=== PATIENT | male | born 1945 | race Caucasian/White ===

== ENCOUNTER 2017-01-19 06:33 | Day surgery (SDC) | payer MEDICARE ==
[~2017-01-19 06:33] MED LIST: Buffered Lidocaine 0.9% SYRIN* 5 ML/SYR SYRINGE INTRADERM ONE; Buffered Lidocaine 0.9% SYRIN* 5 ML/SYR SYRINGE ONE; Proparacaine 0.5% OPHTH.SOL* 15 ML BTL ONE; mitoMYcin PWD* 0.2 MG in Sterile Water for Inj* 1 ML OPHTHALMIC SCH
[2017-01-19] MEDS ORDERED: Triamcinolone Acetonide* 40 MG/ML 1 ML VIAL ONE (07:17)
[2017-01-19] MEDS ORDERED: Acetylcholine 1:100 OPTH* OPHTH.SOLN ONE (07:17)
[2017-01-19] MEDS ORDERED: Lidocaine 2% PF* 10 ML AMP ONE (07:17)
[2017-01-19] MEDS ORDERED: Neomycin/Polymy/Dex OPTH.SUSP* MAXITROL 0.1% 5 ML ONE (07:18)
[2017-01-19] MEDS ORDERED: Lidocaine 2% EPI 1:200000 MPF* 20 ML VIAL ONE (07:18)
[2017-01-19] MEDS ORDERED: BSS OPTH.SOL* BTL ONE (07:18)
[2017-01-19] MEDS ORDERED: Atropine 1% OPHTH.SOL* 2 ML BOT - 2 ML ONE (07:18)
[2017-01-19] MEDS ORDERED: Hyaluronidase OVINE* 200 UNIT/ML ML SUBCUT ONE (07:19)
[2017-01-19] MEDS ORDERED: Povidone Iodine 5% OPTH* 30 ML BTL ONE (07:19)
[2017-01-19] MEDS ORDERED: Sodium Bicarbonate 8.4%* 50 ML SYRINGE ONE (07:23)
[2017-01-19] MEDS ORDERED: Midazolam* 1 MG/ML 2 ML VIAL (2 MG) ONE (07:26)
[2017-01-19] MEDS ORDERED: fentaNYL* 50 MCG/ML 2 ML VIAL (100 MCG VIAL) ONE (07:34)
[2017-01-19] MEDS ORDERED: Propofol* 10 MG/ML 20 ML BTL IV PUSH ONE (07:46)
[2017-01-19] MEDS ORDERED: fentaNYL* 50 MCG/ML 2 ML VIAL (100 MCG VIAL) IV PRN (08:22)
[2017-01-19] MEDS ORDERED: Ondansetron INJ* 2 MG/ML VIAL IV PRN (08:22)
[2017-01-19 08:57] VITALS: BP 137/61
--- NOTE | 2017-01-20 04:25 | OP ---
DICTATION ENDS ABRUPTLY DATE OF OPERATION: 01/19/17 [facility] DATE OF : 43 SURGEON: Charlie Ferrell MD ANESTHESIA: Local with MAC. PREOPERATIVE DIAGNOSIS: Uncontrolled glaucoma, left eye. POSTOPERATIVE DIAGNOSIS: Uncontrolled glaucoma, left eye. OPERATIVE PROCEDURE: Trabeculectomy, left eye. COMPLICATIONS: None. DESCRIPTION OF PROCEDURE: The patient was given retrobulbar anesthesia in the operating room, 50:50 mixture of 2% lidocaine with epinephrine and 0.75 Marcaine , 4 cc were given in the muscle cone without difficulty. The patient was prepped and draped in usual sterile fashion. A 6-0 silk traction suture was placed through the superior limbus and the eye rotated inferiorly. A fornix- based conjunctival peritomy was performed from the 12 o'clock to 2 o'clock position with Joe scissors. Dissection carried down to bare sclera. Hemostasis achieved with pinpoint cautery. Mitomycin-C 0.2 mg/mL was left in sub-Tenon's for 90 seconds and then thoroughly irrigated with balanced salt solution. A triangular limbal based half scleral thickness flap was created with the 75 blade and a crescent blade. Anterior chamber entered with a 3-mm keratome. The Mely punch was used to remove a 1x3 mm trabecular block. Miochol instilled into the anterior chamber. Small amount of DisCoVisc in the anterior chamber. A peripheral iridectomy performed with Vannas scissors at the 130 position. The flap secured with two 10-0 nylon sutures and adjusting the tension so that there is adequate fluid flow. Then the conjunctiva was closed using a running locking 10-0 nylon closure. Paracentesis made at the ___ ___. DICTATION ENDS ABRUPTLY [id number]/[facility] #: [id number] [facility]
== END 2017-01-19 09:00 | disposition home or self-care (01) ==
LOC: OREAST 06:33
PROVIDERS: ATTEND Specialist
DX: H40.1131 Primary open-angle glaucoma, bilateral, mild stage (principal); I10 Essential (primary) hypertension; K21.9 Gastro-esophageal reflux disease without esophagitis; H26.491 Other secondary cataract, right eye; Z96.1 Presence of intraocular lens; Z79.82 Long term (current) use of aspirin; Z88.8 Allergy status to other drugs, medicaments and biological substances
CPT/HCPCS: A9270-GY; J2001; J2250; J2704; J3010; J3301; J9280

== ENCOUNTER 2017-02-09 06:17 | Day surgery (SDC) | payer MEDICARE ==
[~2017-02-09 06:17] MED LIST changes: +Acetaminophen TAB* 325 MG PO PRN; +mitoMYcin 0.2 MG (0.02%) in Sterile Water for Inj* 1 ML SCH; -mitoMYcin PWD* 0.2 MG in Sterile Water for Inj* 1 ML OPHTHALMIC SCH
[2017-02-09] MEDS ORDERED: Lidocaine 2% PF* 10 ML AMP ONE (07:06)
[2017-02-09] MEDS ORDERED: Acetylcholine 1:100 OPTH* OPHTH.SOLN ONE (07:06)
[2017-02-09] MEDS ORDERED: Triamcinolone Acetonide* 40 MG/ML 1 ML VIAL ONE (07:06)
[2017-02-09] MEDS ORDERED: BSS OPTH.SOL* BTL ONE ×2 (07:06→07:22)
[2017-02-09] MEDS ORDERED: Povidone Iodine 5% OPTH* 30 ML BTL ONE (07:07)
[2017-02-09] MEDS ORDERED: Hyaluronidase OVINE* 200 UNIT/ML ML SUBCUT ONE (07:07)
[2017-02-09] MEDS ORDERED: Neomycin/Polymy/Dex OPTH.SUSP* MAXITROL 0.1% 5 ML ONE (07:07)
[2017-02-09] MEDS ORDERED: Sodium Bicarbonate 8.4%* 50 ML SYRINGE ONE (07:08)
[2017-02-09] MEDS ORDERED: Atropine 1% OPHTH.SOL* 2 ML BOT - 2 ML ONE (07:09)
[2017-02-09] MEDS ORDERED: Midazolam* 1 MG/ML 2 ML VIAL (2 MG) ONE (07:21)
[2017-02-09] MEDS ORDERED: fentaNYL* 50 MCG/ML 2 ML VIAL (100 MCG VIAL) ONE (07:21)
[2017-02-09] MEDS ORDERED: Lidocaine 2% PF * 5 ML VIAL ONE (07:33)
[2017-02-09] MEDS ORDERED: Propofol* 10 MG/ML 20 ML BTL IV PUSH ONE (07:33)
[2017-02-09 08:45] VITALS: BP 138/67
--- NOTE | 2017-02-09 16:21 | OP ---
DATE OF OPERATION: 02/09/17 [facility] DATE OF : 43 SURGEON: Charlie Ferrell M.D. ANESTHESIA: Local with MAC. COMPLICATIONS: None. PREOPERATIVE DIAGNOSIS: Uncontrolled glaucoma, right eye. POSTOPERATIVE DIAGNOSIS: Uncontrolled glaucoma, right eye. OPERATIVE PROCEDURE: Trabeculectomy right eye. DESCRIPTION OF PROCEDURE: The patient was given retrobulbar anesthesia in the operating room, 50:50 mixture of 0.75 Marcaine and 2% lidocaine with epinephrine , 4 cc injected in the muscle cone without difficulty. Eye was prepped and draped in the usual sterile fashion. A lid speculum was placed, 6-0 silk traction suture placed through the superior limbus and the eye rotated inferiorly. A fornix-based conjunctival peritomy was performed running from the 10 o'clock to 12 o'clock position using the Joe scissors; 2% lidocaine with epinephrine was injected sub- Tenon's. Dissection was carried down to bare sclera. Hemostasis achieved with cautery. Mitomycin-C 0.2 mg/mL placed sub-Tenon's for 1-1/2 minutes and thoroughly irrigated with balanced salt solution. A limbal based triangular half scleral thickness flap was created using the crescent blade in the area of the peritomy at 10:30. Anterior chamber entered with a 3 mm keratome. A Miochol instilled into the anterior chamber. Paracentesis made at the 8 o'clock position with 75 blade. Some DisCoVisc instilled in the anterior chamber. Mely punch was used to removed a 3 x 1 mm trabecular block of tissue from under the flap. Peripheral iridectomy performed with Vannas scissors through the flap. The flap closed at its apex with one 10-0 nylon suture. Conjunctiva closed using a running locking 10-0 nylon suture and running locking 10-0 Vicryl suture. Anterior chamber reinflated and the incisions were found to be watertight with good bleb development, sub-Tenon's Kenalog 40 mg/mL, 1 mL was injected sub-Tenon's at the inferior fornix. Lid speculum was removed, traction sutures removed. Topical atropine and Maxitrol were given, and the eye was patched. [id number]/[facility] #: [id number] [facility]
== END 2017-02-09 08:38 | disposition home or self-care (01) ==
LOC: OREAST 06:17
PROVIDERS: ATTEND Specialist
DX: H40.1111 Primary open-angle glaucoma, right eye, mild stage (principal); H40.1121 Primary open-angle glaucoma, left eye, mild stage; I25.10 Atherosclerotic heart disease of native coronary artery without angina pectoris; I25.2 Old myocardial infarction; I10 Essential (primary) hypertension; Z87.891 Personal history of nicotine dependence; E03.9 Hypothyroidism, unspecified
CPT/HCPCS: A9270-GY; J2001; J2250; J2704; J3010; J3301; J3471; J9280

== ENCOUNTER 2017-10-30 08:01 | Emergency (ER) | payer MEDICARE ==
[2017-10-30] MEDS ORDERED: cloNIDine TAB* 0.1 MG PO ONE (08:47)
[2017-10-30 08:55] LABS: ABS Basophils 0 10^3/ul (0-0.2); ABS Eosinophils 0.1 10^3/ul (0-0.6); ABS Monocytes 0.5 10^3/ul (0-0.8); ABS Neutrophils 4.1 10^3/ul (1.5-7.7); ABS Nucleated RBC 0 10^3/ul; Eosinophil % 1.5 % (0-6); Hematocrit 39 % (42-52); Hemoglobin 13.4 g/dl (14.0-18.0); Mean Corpuscular HGB Conc 35 g/dl (31-36); Mean Corpuscular Hemoglobin 30 pg (27-31); Mean Corpuscular Volume 87 fL (80-94); Mean Platelet Volume 7.3 um3 (7.4-10.4); Nucleated Red Blood Cells % 0; Platelet Count 268 10^3/ul (150-450); Red Blood Count 4.49 10^6/ul (4.0-5.4); Red Cell Distribution Width 14 % (10.5-15); White Blood Count 5.7 10^3/ul (3.5-10.8)
[2017-10-30 09:04] LABS: INR 0.93 (0.77-1.02)
[2017-10-30 09:15] LABS: EGFR Non-African American 74.1 (>60)
--- NOTE | 2017-10-30 09:37 | RAD ---
Indication: Epistaxis. Elevated blood pressure. History of myocardial infarction. History of respiratory disease. Comparison: April 24, 2011 and November 18, 2013 CT abdomen. Technique: Dual energy PA and lateral chest views. Report: Elevated lung volumes and both mild prominence and patchy rarefaction of interstitial markings. 0.8 cm nodule at the RIGHT mid to lower lung zone is unchanged compared with the 2011 exam without concern. Bilateral calcified pleural plaques including involvement of the diaphragmatic surfaces. Negative for pleural effusion or pneumothorax. The heart, pulmonary vasculature, and mediastinal contours are unremarkable. Gallbladder fossa level surgical clips. IMPRESSION: 1. Stigmata of obstructive lung disease and prior asbestos exposure with calcified pleural plaques including involvement of the diaphragmatic surfaces. 2. No acute pulmonary or cardiac process evident.
[2017-10-30 14:05] VITALS: BP 154/85
--- NOTE | 2017-10-31 11:23 | ED ---
Mag Guerra Edward, scribed for Mae Elkins MD on 10/30/17 at 0829 . Complex/Multi-Sys Presentation - HPI Summary HPI Summary: 72 y/o male presents to the ED c/o intermittent episodes of epistaxis for the last 4 weeks. Episodes aggravated with sneezing, blowing his nose. Epistaxis alleviated with "cold plate treatment". This morning the pt had 1 episode of epistaxis after blowing his nose. Pt then took his BP and reports it was "super high". 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 Associated sx: SOB for the past few days, small ecchymosis on R calf. PMHx HTN, "mini-stroke" in L eye. Meds - plavix and ASA, last taken 07:00 this morning. - History Of Current Complaint Chief Complaint: EDGeneral Time Seen by Provider: 10/30/17 08:26 Hx Obtained From: Patient Onset/Duration: Lasting Weeks Timing: Intermittent, Lasting: Aggravating Factor(s): sneezing, blowing his nose Alleviating Factor(s): "cold plate treatment" Associated Signs And Symptoms: Positive: SOB, Other - epistaxis, small ecchymosis on R calf - Allergies/Home Medications Allergies/Adverse Reactions: Allergies Allergy/AdvReac Type Severity Reaction Status Date / Time colestipol Allergy Severe Joint Pain Verified 10/30/17 08:09 fluvastatin Allergy Severe Joint Pain Verified 10/30/17 08:09 simvastatin Allergy Severe Joint Pain Verified 10/30/17 08:09 Ufwltng-Qzy-Fhg Reductase Allergy Severe Joint Pain Verified 10/30/17 08:09 Inhibitor Home Medications: Home Medications Clopidogrel TAB* [Plavix TAB*] 75 mg PO DAILY 10/30/17 [History Confirmed ] Docusate Sodium [Stool Softener] 1 cap PO DAILY 10/30/17 [History Confirmed ] Pantoprazole TAB (NF) [Protonix TAB (NF)] 40 mg PO DAILY 10/30/17 [History Confirmed 10/30/17] PMH/Surg Hx/FS Hx/Imm Hx Previously Healthy: No Endocrine/Hematology History: Reports: Hx Anticoagulant Therapy, Hx Blood Transfusions, Hx Thyroid Disease - hypothyroid Denies: Hx Blood Disorders, Hx Bone Marrow Disease, Hx Diabetes, Hx Systemic Lupus Erythematosus, Hx Sickle Cell Disease, Hx Anemia, Hx Unexplained Bleeding Cardiovascular History: Reports: Hx Angina, Hx Angioplasty, Hx Cardiomegaly, Hx Coronary Artery Disease, Hx Hypercholesterolemia, Hx Hypertension, Hx Rheumatic Fever Denies: Hx Aneurysm, Hx Auto Implanted Cardiovert Defib, Hx Cardiac Arrest, Hx Congenital Heart Disease, Hx Congestive Heart Failure, Hx Deep Vein Thrombosis, Hx Embolism, Hx Hypotension, Hx Pacemaker/ICD, Hx Peripheral Vascular Disease, Hx Syncope, Hx Valvular Heart Disease, Other Cardiovascular Problems/Disorders Respiratory History: Denies: Other Respiratory Problems/Disorders GI History: Reports: Hx Gall Bladder Disease, Hx Gastroesophageal Reflux Disease , Hx Gastrointestinal Bleed, Hx Jaundice, Other GI Disorders - GERD/BARRETTS ESOPHAGUS Denies: Hx Cirrhosis, Hx Crohn's Disease, Hx Diverticulosis, Hx Hiatal Hernia , Hx Irritable Bowel, Hx Obstructive Bowel, Hx Ileostomy, Hx Pyloric Stenosis, Hx Ulcer History: Reports: Hx Benign Prostatic Hyperplasia Denies: Hx Renal Disease Musculoskeletal History: Reports: Hx Arthritis, Hx Back Problems Denies: Other Musculoskeletal History Sensory History: Reports: Hx Cataracts, Hx Contacts or Glasses, Hx Glaucoma, Hx Vision Problem, Hx Hearing Problem Denies: Hx Eye Injury, Hx Eye Prosthesis, Hx Legally Blind, Hx Macular Degeneration, Hx Deafness, Hx Hearing Aid Opthamlomology History: Reports: Hx Cataracts, Hx Contacts or Glasses, Hx Glaucoma, Hx Vision Problem Denies: Hx Eye Injury, Hx Eye Prosthesis, Hx Legally Blind, Hx Macular Degeneration Neurological History: Denies: Other Neuro Impairments/Disorders Psychiatric History: Denies: Hx Panic Disorder - Cancer History Cancer Type, Location 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 Hx Chemotherapy: No Hx Radiation Therapy: No Hx Palliative Cancer Treatment: No - Surgical History Surgery Procedure, Year, and Place: HEMMOROIDS,GALL BLADDER,STENTS X 2,EYE SHUNT FOR GLAUCOMA *HAD MRI WITH US AT 1.5-OK'D BY DR KEN* Hx Anesthesia Reactions: No Infectious Disease History: No Infectious Disease History: Denies: Hx Clostridium Difficile, Hx Hepatitis, Hx Human Immunodeficiency Virus (HIV), Hx of Known/Suspected MRSA, Hx Shingles, Hx Tuberculosis, Hx Known/ Suspected VRE, Hx Known/Suspected VRSA, History Other Infectious Disease, Traveled Outside the [place] in Last 30 Days - Social History Alcohol Use: None Substance Use Type: Reports: None Smoking Status (MU): Former Smoker Type: Cigarettes Amount Used/How Often: 1 PPD Length of Time of Smoking/Using Tobacco: 30 years Have You Smoked in the Last Year: No Review of Systems Constitutional: Negative Eyes: Negative Positive: Epistaxis Cardiovascular: Negative Positive: Shortness Of Breath Gastrointestinal: Negative Genitourinary: Negative Musculoskeletal: Negative Positive: Bruising - small on R calf Neurological: Negative Psychological: Normal All Other Systems Reviewed And Are Negative: Yes Physical Exam - Summary Physical Exam Summary: GENERAL: ~Patient is a well developed and nourished M who is lying comfortable in the stretcher. ~Patient is not in any acute respiratory distress. HEAD AND FACE: Normocephalic EYES: PERRLA, EOMI x 2. EARS: Hearing grossly intact. NOSE: No active bleeding. MOUTH: Oropharynx within normal limits. NECK: Supple, trachea is midline, no adenopathy, no JVD, no carotid bruit. CHEST: Symmetric, no tenderness at palpation LUNGS: Clear to auscultation bilaterally. No wheezing or crackles. CVS: Regular rate and rhythm, S1 and S2 present, no murmurs or gallops appreciated. ABDOMEN: Soft, non-tender. Bowel sounds are normal. No abdominal abnormal pulsations. EXTREMITIES: Full ROM in all major joints, no edema, no cyanosis or clubbing. Small ecchymosis @ lateral aspect of R leg. NEURO: Alert and oriented x 3. No acute neurological deficits. Speech is normal and follows commands. SKIN: Dry and warm Triage Information Reviewed: Yes Vital Signs On Initial Exam: Initial Vitals Temp Pulse Resp BP Pulse Ox 98.1 F 73 16 204/86 98 10/30/17 08:03 10/30/17 08:03 10/30/17 08:03 10/30/17 08:03 10/30/17 08:03 Vital Signs Reviewed: Yes Diagnostics - Vital Signs Vital Signs Temp Pulse Resp BP Pulse Ox 10/30/17 08:03 98.1 F 73 16 204/86 98 - Laboratory Result Diagrams: 10/30/17 08:48 10/30/17 08:48 Lab Statement: Any lab studies that have been ordered have been reviewed, and results considered in the medical decision making process. - Radiology CXR Xray Interpretation: Positive (See Comments) - 1. Stigmata of obstructive lung disease and prior asbestos exposure with calcified pleural plaques including involvement of the diaphragmatic surfaces. 2. No acute pulmonary or cardiac process evident. Radiology Interpretation Completed By: Radiologist - ED PHYSICIAN [employer]REES Re-Evaluation - Re-Evaluation 1 Re-Evaluation Time: 10:36 Change: Improved Complex Multi-Symp Course/Dx Assessment/Plan: 72 y/o male who is on blood thinners presents to ED c/o nose bleeds, then took bp and realized it was elevated. No active nose bleeding in ED but BP was elevated. Given klonodine with improvement of BP. H&H stable and coagulation studies normal. Pt will be d/c home strict return precautions otherwise f/u with PCP. - Diagnoses Provider Diagnoses: Hypertension Discharge - Sign-Out/Discharge Documenting (check all that apply): Discharge/Admit/Transfer - Discharge Plan Condition: Stable Disposition: HOME Patient Education Materials: Nosebleed (ED), Hypertension (ED) Referrals: Thuan Garcia MD [Primary Care Provider] - 4 Days (PLEASE F/U IN 3-5 DAYS) Additional Instructions: RETURN FOR CHANGING AND WORSENING SYMPTOMS The documentation as recorded by the Mag norman Edward accurately reflects the service I personally performed and the decisions made by , Mae Elkins MD.
== END 2017-10-30 14:31 | disposition home or self-care (01) ==
LOC: ED 08:01
DX: I10 Essential (primary) hypertension (principal); J44.9 Chronic obstructive pulmonary disease, unspecified; F17.210 Nicotine dependence, cigarettes, uncomplicated; Z86.73 Personal history of transient ischemic attack (TIA), and cerebral infarction without residual deficits; Z79.82 Long term (current) use of aspirin; Z79.02 Long term (current) use of antithrombotics/antiplatelets; Z88.8 Allergy status to other drugs, medicaments and biological substances
CPT/HCPCS: 36415; 71046; 80053; 84484; 85025; 85610; 85730; 99283; A9270-GY

== ENCOUNTER 2017-12-03 08:08 | Emergency (ER) | payer MEDICARE ==
[2017-12-03] MEDS ORDERED: amLODIPine TAB* 5 MG PO ONE (09:03)
[2017-12-03 09:33] LABS: Hematocrit 40 % (42-52); Hemoglobin 13.6 g/dl (14.0-18.0); Mean Corpuscular HGB Conc 34 g/dl (31-36); Mean Corpuscular Hemoglobin 30 pg (27-31); Mean Corpuscular Volume 87 fL (80-94); Mean Platelet Volume 7.4 um3 (7.4-10.4); Platelet Count 298 10^3/ul (150-450); Red Blood Count 4.59 10^6/ul (4.0-5.4); Red Cell Distribution Width 14 % (10.5-15)
--- NOTE | 2017-12-03 09:47 | ED ---
Throat Pain/Nasal Congestion - HPI Summary HPI Summary: Patient here with recurrent epistaxis over the past couple of months. He reports his bloody noses lasts for about 10 minutes or less in the improve when he applies a moisturizing nasal gel. He does not apply pressure. Sometimes the strip from the front of his nose other times they going to the back of his throat. He has had clotting with his nosebleeds as well. He was seen here at the end of October for similar issue and referred back to his PCP. His blood pressure was elevated that day and appears to be elevated again today - patient reports his blood pressure is typically controlled in the 120s but has not been since his nosebleeds have been recurrent. He takes Norvasc, lisinopril and atenolol. He also admits he had allergic rhinitis symptoms earlier in the year with sneezing, congestion, rhinorrhea. He does not take any medication for this including antihistamine eye mouth or by nasal spray. He has used antihistamine nasal spray in the past which seemed to be helpful however once the bottle ran out he stopped using it and never got a refill. He denies headache, dizziness, eye pain, sore throat, ear pain, chest pain, lightheadedness, weakness. He takes Plavix for carotid artery stenosis. - History of Current Complaint Chief Complaint: EDEpistaxis Time Seen by Provider: 12/03/17 08:17 Hx Obtained From: Patient - Allergies/Home Medications Allergies/Adverse Reactions: Allergies Allergy/AdvReac Type Severity Reaction Status Date / Time colestipol Allergy Severe Joint Pain Verified 12/03/17 08:14 fluvastatin Allergy Severe Joint Pain Verified 12/03/17 08:14 simvastatin Allergy Severe Joint Pain Verified 12/03/17 08:14 Ckeoxap-Ida-Lze Reductase Allergy Severe Joint Pain Verified 12/03/17 08:14 Inhibitor Home Medications: Home Medications Glucosamine CAP (NF) 1 cap PO BID 12/03/17 [History Confirmed 12/03/17] Nitroglycerin TAB 0.4 MG* 0.4 mg SL Q5M PRN 12/03/17 [History Confirmed 12/03/17 ] Triamcinolone 0.1% CREAM (NF) [Kenalog 0.1% Cream (NF)] 1 applic TOPICAL DAILY PRN 12/03/17 [History Confirmed 12/03/17] PMH/Surg Hx/FS Hx/Imm Hx Previously Healthy: Yes Endocrine/Hematology History: Reports: Hx Anticoagulant Therapy - plavix, Hx Blood Transfusions, Hx Thyroid Disease - hypothyroid Denies: Hx Blood Disorders, Hx Bone Marrow Disease, Hx Diabetes, Hx Systemic Lupus Erythematosus, Hx Sickle Cell Disease, Hx Anemia, Hx Unexplained Bleeding Cardiovascular History: Reports: Hx Angina, Hx Angioplasty, Hx Cardiomegaly, Hx Coronary Artery Disease, Hx Hypercholesterolemia, Hx Hypertension, Hx Rheumatic Fever Denies: Hx Aneurysm, Hx Auto Implanted Cardiovert Defib, Hx Cardiac Arrest, Hx Congenital Heart Disease, Hx Congestive Heart Failure, Hx Deep Vein Thrombosis, Hx Embolism, Hx Hypotension, Hx Pacemaker/ICD, Hx Peripheral Vascular Disease, Hx Syncope, Hx Valvular Heart Disease, Other Cardiovascular Problems/Disorders Respiratory History: Denies: Other Respiratory Problems/Disorders GI History: Reports: Hx Gall Bladder Disease, Hx Gastroesophageal Reflux Disease , Hx Gastrointestinal Bleed, Hx Jaundice, Other GI Disorders - GERD/BARRETTS ESOPHAGUS Denies: Hx Cirrhosis, Hx Crohn's Disease, Hx Diverticulosis, Hx Hiatal Hernia , Hx Irritable Bowel, Hx Obstructive Bowel, Hx Ileostomy, Hx Pyloric Stenosis, Hx Ulcer History: Reports: Hx Benign Prostatic Hyperplasia Denies: Hx Renal Disease Musculoskeletal History: Reports: Hx Arthritis, Hx Back Problems Denies: Other Musculoskeletal History Sensory History: Reports: Hx Cataracts, Hx Contacts or Glasses, Hx Glaucoma, Hx Vision Problem, Hx Hearing Problem Denies: Hx Eye Injury, Hx Eye Prosthesis, Hx Legally Blind, Hx Macular Degeneration, Hx Deafness, Hx Hearing Aid Opthamlomology History: Reports: Hx Cataracts, Hx Contacts or Glasses, Hx Glaucoma, Hx Vision Problem Denies: Hx Eye Injury, Hx Eye Prosthesis, Hx Legally Blind, Hx Macular Degeneration EENT History: Reports: Other - recurrent epistaxis Neurological History: Denies: Other Neuro Impairments/Disorders Psychiatric History: Denies: Hx Panic Disorder - Cancer History Cancer Type, Location 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 Hx Chemotherapy: No Hx Radiation Therapy: No Hx Palliative Cancer Treatment: No - Surgical History Surgery Procedure, Year, and Place: HEMMOROIDS,GALL BLADDER,STENTS X 2,EYE SHUNT FOR GLAUCOMA *HAD MRI WITH US AT 1.5-OK'D BY DR KEN* Hx Anesthesia Reactions: No Infectious Disease History: No Infectious Disease History: Denies: Hx Clostridium Difficile, Hx Hepatitis, Hx Human Immunodeficiency Virus (HIV), Hx of Known/Suspected MRSA, Hx Shingles, Hx Tuberculosis, Hx Known/ Suspected VRE, Hx Known/Suspected VRSA, History Other Infectious Disease, Traveled Outside the [place] in Last 30 Days - Family History Known Family History: Positive: None - Social History Occupation: Retired Alcohol Use: None Hx Substance Use: No Substance Use Type: Reports: None Hx Tobacco Use: Yes - not currently Smoking Status (MU): Former Smoker Type: Cigarettes Amount Used/How Often: 1 PPD Length of Time of Smoking/Using Tobacco: 30 years Have You Smoked in the Last Year: No Review of Systems Constitutional: Negative Negative: Fever, Chills, Fatigue Eyes: Negative Positive: Epistaxis. Negative: Dental Pain, Sore Throat, Ear Ache, Nasal Discharge Cardiovascular: Negative Respiratory: Negative Gastrointestinal: Negative Positive: no symptoms reported Skin: Negative Neurological: Negative Psychological: Normal All Other Systems Reviewed And Are Negative: Yes Physical Exam Triage Information Reviewed: Yes Vital Signs On Initial Exam: Initial Vitals Temp Pulse Resp BP Pulse Ox 97.3 F 62 14 192/90 96 12/03/17 08:14 12/03/17 08:14 12/03/17 08:14 12/03/17 08:14 12/03/17 08:14 Vital Signs Reviewed: Yes Appearance: Positive: Well-Appearing, No Pain Distress, Well-Nourished Skin: Positive: Warm, Skin Color Reflects Adequate Perfusion, Dry Head/Face: Positive: Normal Head/Face Inspection Eyes: Positive: Normal, EOMI, Conjunctiva Clear ENT: Positive: Normal ENT inspection, Hearing grossly normal, Pharynx normal - no blood, Nasal congestion - mild - boggy turbinates w/ what appears to be friable septal mucosa - no active bleeding, Uvula midline. Negative: Nasal drainage, Trismus, Muffled voice Neck: Positive: Supple, Nontender Respiratory/Lung Sounds: Positive: Clear to Auscultation, Breath Sounds Present Cardiovascular: Positive: Normal, RRR Musculoskeletal: Positive: Normal, Strength/ROM Intact Neurological: Positive: Normal, Sensory/Motor Intact, Alert, Oriented to Person Place, Time Psychiatric: Positive: Normal Diagnostics - Vital Signs Vital Signs Temp Pulse Resp BP Pulse Ox 12/03/17 08:36 59 176/79 98 06/02/18 08:14 97.3 F 62 14 192/90 96 - Laboratory Lab Results: Lab Results 12/03/17 Range/Units 09:15 WBC 5.0 (3.5-10.8) 10^3/ul RBC 4.59 (4.0-5.4) 10^6/ul Hgb 13.6 L (14.0-18.0) g/dl Hct 40 L (42-52) % MCV 87 (80-94) fL MCH 30 (27-31) pg MCHC 34 (31-36) g/dl RDW 14 (10.5-15) % Plt Count 298 (150-450) 10^3/ul MPV 7.4 (7.4-10.4) um3 Result Diagrams: 12/03/17 09:15 Lab Statement: Any lab studies that have been ordered have been reviewed, and results considered in the medical decision making process. EENT Course/Dx - Course Course Of Treatment: Patient was previously seen here in October 2017 for similar events of recurrent epistaxis. His blood pressure was elevated then and continues to be elevated today. Discussed with Dr. Rhodes and will trial patient on 5 additional milligrams of Norvasc over the next week with close follow-up with PCP to see if this reduces his risk of recurrent epistaxis. Additionally, patient may continue to use moisturizing nasal gel and follow-up with ENT provider as he appears to have allergic rhinitis. Patient will call this week for follow-up appointments with PCP and ENT. Review danger signs and symptoms of when to return the emergency Department. Patient agrees with plan. We also discussed if he has a recurrence of epistaxis he should lean forward and pinched the soft part of his nose for 20 consistent minutes. If epistaxis continues beyond this, he should return to the emergency department. He will also avoid anything that may irritate his nasal lining such as drying agents and excessive blowing. LABS improved from previous visit - no concern for heavy hemorrhaging. - Diagnoses Provider Diagnoses: Epistaxis, recurrent, Hypertension, Allergic rhinitis Discharge - Sign-Out/Discharge Documenting (check all that apply): Discharge/Admit/Transfer - Discharge Plan Condition: Stable Disposition: HOME Prescriptions: amLODIPine TAB* [Norvasc 5 mg TAB*] 5 mg PO DAILY #7 tab Patient Education Materials: Nosebleed (ED), Allergic Rhinitis (ED), Hypertension (ED) Referrals: Thuan Garcia MD [Primary Care Provider] - Isrrael Gibbons MD [Medical Doctor] - Additional Instructions: You appear to be having recurrent bloody noses from irritated nasal mucosa. It is suspected that this is been caused by allergic rhinitis, a condition that is described in your educational discharge paperwork. Since her mucosa is so irritated, it is advised that you avoid active treatment of her allergic rhinitis other than your moisturizing nasal gel which she been using until you are seen by ear nose and throat for further advice on treatment. Call Tuesday to schedule an appointment. Contact information for the earth auger operator has been provided here. Additionally, your blood pressure has been elevated both times she been here to the hospital. This may be contribute interior nosebleeds as well. Norvasc 5 mg has been added to your routine 10 mg dose to total 15 mg per day. It is advised that she take this daily over the next week and follow up with her primary care provider to recheck her blood pressure. Call your PCP Tuesday to schedule an appointment. If you develop a recurrence of bloody nose, lean forward and pinch the soft part of your nose for 20 consistent minutes. If bleeding continues beyond this , you should return to the emergency department. Also, also avoid anything that may irritate your nasal lining such as drying agents (ie. afrin, nasonex, etc) and excessive blowing. - Billing Disposition and Condition Condition: STABLE Disposition: HOME
[2017-12-03 10:01] LABS: INR 0.94 (0.77-1.02)
[2017-12-03 10:05] VITALS: BP 154/75
== END 2017-12-03 10:05 | disposition home or self-care (01) ==
LOC: ED 08:08
DX: R04.0 Epistaxis (principal); I10 Essential (primary) hypertension; J30.9 Allergic rhinitis, unspecified; Z87.891 Personal history of nicotine dependence; Z79.01 Long term (current) use of anticoagulants; E03.9 Hypothyroidism, unspecified; I25.119 Atherosclerotic heart disease of native coronary artery with unspecified angina pectoris; Z95.5 Presence of coronary angioplasty implant and graft; I51.7 Cardiomegaly; K21.9 Gastro-esophageal reflux disease without esophagitis; N40.0 Benign prostatic hyperplasia without lower urinary tract symptoms; Z88.8 Allergy status to other drugs, medicaments and biological substances; Z79.899 Other long term (current) drug therapy
CPT/HCPCS: 36415; 85027; 85610; 85730; 99282; A9270-GY

== ENCOUNTER 2018-06-09 13:24 | Emergency (ER) | payer MEDICARE ==
--- NOTE | 2018-06-09 13:57 | ED ---
HPI Chest Pain - HPI Summary HPI Summary: The pt is a 73 y/o male presenting to [facility] c/o of chest pain since 01:000 hrs today. He noticed it when he woke up to go to the bathroom. The pain subsided after taking 2 NTGs. Initially, the CP radiated to down is LUE and is currently described as a pressure. He says it feels like there is phlegm accumulation in his chest. He denies diaphoresis, SOB and pedal edema. His measured BP was 159/70 upon waking up today. He took all his medications to a mild decrease. The sx are not similar to his last PA episodes. 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 His last cardiac catheterization was 5-6 years ago, performed at [facility]. Home Medications Medication Instructions Recorded Confirmed Type Aspirin TAB* [Aspirin 325 MG TAB*] 325 mg PO QAM 11/18/13 12/03/17 History Atenolol TAB* [Tenormin TAB* 50 MG] 50 mg PO BID 11/18/13 12/03/17 History Levothyroxine TAB* [Synthroid 125 125 mcg PO QAM 11/18/13 12/03/17 History MCG TAB*] Lisinopril TAB* [Prinivil TAB 10 20 mg PO BID 11/18/13 12/03/17 History MG*] amLODIPine TAB* [Norvasc 5 mg TAB*] 5 mg PO QAM 11/18/13 12/03/17 History Clopidogrel TAB* [Plavix TAB*] 75 mg PO DAILY 10/30/17 12/03/17 History Docusate Sodium [Stool Softener] 1 cap PO DAILY 10/30/17 12/03/17 History Pantoprazole TAB (NF) [Protonix 40 mg PO DAILY 10/30/17 12/03/17 History TAB (NF)] Glucosamine CAP (NF) 1 cap PO BID 12/03/17 12/03/17 History Nitroglycerin TAB 0.4 MG* 0.4 mg SL Q5M PRN 12/03/17 12/03/17 History Triamcinolone 0.1% CREAM (NF) 1 applic TOPICAL DAILY PRN 12/03/17 12/03/17 History [Kenalog 0.1% Cream (NF)] amLODIPine TAB* [Norvasc 5 mg TAB*] 5 mg PO DAILY #7 tab 12/03/17 Rx - History of Current Complaint Chief Complaint: EDChestPainROMI Time Seen by Provider: 06/09/18 13:40 Hx Obtained From: Patient Onset/Duration: Started Hours Ago, Still Present - Chest pressure, Resolved - CP Current Severity: None Pain Intensity: 0 Pain Scale Used: 0-10 Numeric Chest Pain Location: Diffuse Chest Pain Radiates: Yes Chest Pain Radiates To:: Arm Character: Pressure/Squeezing Aggravating Factor(s): Nothing Alleviating Factor(s): Nothing Associated Signs and Symptoms: Positive: Chest Pain. Negative: Shortness of Breath, Diaphoresis, Edema - Allergy/Home Medications Allergies/Adverse Reactions: Allergies Allergy/AdvReac Type Severity Reaction Status Date / Time colestipol Allergy Severe Joint Pain Verified 12/03/17 08:14 fluvastatin Allergy Severe Joint Pain Verified 12/03/17 08:14 simvastatin Allergy Severe Joint Pain Verified 12/03/17 08:14 Aorzraa-Rec-Sdy Reductase Allergy Severe Joint Pain Verified 12/03/17 08:14 Inhibitor Home Medications: Home Medications Aspirin EC TAB* [Ecotrin EC Low Dose 81 MG*] 81 mg PO DAILY 06/09/18 [History Confirmed 06/09/18] Glucosamine Sulfate 500 mg PO BID 06/09/18 [History Confirmed 06/09/18] Levothyroxine TAB* [Synthroid TAB*] 112 mcg PO QAM 06/09/18 [History Confirmed 06/09/18] Lisinopril 20 mg PO BID 06/09/18 [History Confirmed 06/09/18] amLODIPine TAB* [Norvasc 5 mg TAB*] 10 mg PO DAILY 06/09/18 [History Confirmed 06/09/18] PMH/Surg Hx/FS Hx/Imm Hx Previously Healthy: No Endocrine/Hematology History: Reports: Hx Anticoagulant Therapy - plavix, Hx Blood Transfusions, Hx Thyroid Disease - hypothyroid Denies: Hx Blood Disorders, Hx Bone Marrow Disease, Hx Diabetes, Hx Systemic Lupus Erythematosus, Hx Sickle Cell Disease, Hx Anemia, Hx Unexplained Bleeding Cardiovascular History: Reports: Hx Angina, Hx Angioplasty, Hx Cardiomegaly, Hx Coronary Artery Disease, Hx Hypercholesterolemia, Hx Hypertension, Hx Rheumatic Fever Denies: Hx Aneurysm, Hx Auto Implanted Cardiovert Defib, Hx Cardiac Arrest, Hx Congenital Heart Disease, Hx Congestive Heart Failure, Hx Deep Vein Thrombosis, Hx Embolism, Hx Hypotension, Hx Pacemaker/ICD, Hx Peripheral Vascular Disease, Hx Syncope, Hx Valvular Heart Disease, Other Cardiovascular Problems/Disorders Respiratory History: Denies: Other Respiratory Problems/Disorders GI History: Reports: Hx Gall Bladder Disease, Hx Gastroesophageal Reflux Disease , Hx Gastrointestinal Bleed, Hx Jaundice, Other GI Disorders - GERD/BARRETTS ESOPHAGUS Denies: Hx Cirrhosis, Hx Crohn's Disease, Hx Diverticulosis, Hx Hiatal Hernia , Hx Irritable Bowel, Hx Obstructive Bowel, Hx Ileostomy, Hx Pyloric Stenosis, Hx Ulcer History: Reports: Hx Benign Prostatic Hyperplasia Denies: Hx Renal Disease Musculoskeletal History: Reports: Hx Arthritis, Hx Back Problems Denies: Other Musculoskeletal History Sensory History: Reports: Hx Cataracts, Hx Contacts or Glasses, Hx Glaucoma, Hx Vision Problem, Hx Hearing Problem Denies: Hx Eye Injury, Hx Eye Prosthesis, Hx Legally Blind, Hx Macular Degeneration, Hx Deafness, Hx Hearing Aid Opthamlomology History: Reports: Hx Cataracts, Hx Contacts or Glasses, Hx Glaucoma, Hx Vision Problem Denies: Hx Eye Injury, Hx Eye Prosthesis, Hx Legally Blind, Hx Macular Degeneration Neurological History: Denies: Other Neuro Impairments/Disorders Psychiatric History: Denies: Hx Panic Disorder - Cancer History Cancer Type, Location 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 Hx Chemotherapy: No Hx Radiation Therapy: No Hx Palliative Cancer Treatment: No - Surgical History Surgery Procedure, Year, and Place: HEMMOROIDS,GALL BLADDER,STENTS X 2,EYE SHUNT FOR GLAUCOMA *HAD MRI WITH US AT [facility] BY DR KEN* Hx Anesthesia Reactions: No Infectious Disease History: No Infectious Disease History: Denies: Hx Clostridium Difficile, Hx Hepatitis, Hx Human Immunodeficiency Virus (HIV), Hx of Known/Suspected MRSA, Hx Shingles, Hx Tuberculosis, Hx Known/ Suspected VRE, Hx Known/Suspected VRSA, History Other Infectious Disease, Traveled Outside the [place] in Last 30 Days - Family History Known Family History: Positive: Hypertension - Both parents , Other - Stroke - Mother who at age 50 - Social History Occupation: Retired Lives: Alone Alcohol Use: None Hx Substance Use: No Substance Use Type: Reports: None Hx Tobacco Use: Yes - not currently Smoking Status (MU): Former Smoker Type: Cigarettes Amount Used/How Often: 1 PPD Length of Time of Smoking/Using Tobacco: 30 years Have You Smoked in the Last Year: No Review of Systems All Other Systems Reviewed And Are Negative: Yes Physical Exam - Summary Physical Exam Summary: Appearance: The patient is well-nourished in no acute distress and in no acute pain. Skin: The skin is warm and dry and skin color reflects adequate perfusion. HEENT: The head is normocephalic and atraumatic. The pupils are equal and reactive. The conjunctivae are clear and without drainage. Nares are patent and without drainage. Mouth reveals moist mucous membranes and the throat is without erythema and exudate. The external ears are intact. The ear canals are patent and without drainage. The tympanic membranes are intact. Neck: The neck is supple with full range of motion and non-tender. There are no carotid bruits. There is no neck vein distension. Respiratory: Chest is non-tender. Lungs are clear to auscultation and breath sounds are symmetrical and equal. Cardiovascular: Heart is regular rate and rhythm. There is no murmur or rub auscultated. There is no peripheral edema and pulses are symmetrical and equal. Abdomen: The abdomen is soft and non-tender. There are normal bowel sounds heard in all four quadrants and there is no organomegaly palpated. Musculoskeletal: There is no back tenderness noted. Extremities are non-tender with full range of motion. There is good capillary refill. There is no peripheral edema or calf tenderness elicited. Neurological: Patient is alert and oriented to person, place and time. The patient has symmetrical motor strength in all four extremities. Cranial nerves are grossly intact. Deep tendon reflexes are symmetrical and equal in all four extremities. Psychiatric: The patient has an appropriate affect and does not exhibit any anxiety or depression. Triage Information Reviewed: Yes Vital Signs On Initial Exam: Initial Vitals Temp Pulse Resp BP Pulse Ox 98.6 F 80 18 168/76 96 06/09/18 13:27 06/09/18 13:27 06/09/18 13:27 06/09/18 13:27 06/09/18 13:27 Vital Signs Reviewed: Yes Diagnostics - Vital Signs Vital Signs Temp Pulse Resp BP Pulse Ox 06/09/18 13:27 98.6 F 80 18 168/76 96 - Laboratory Result Diagrams: 06/09/18 13:59 06/09/18 13:59 Lab Statement: Any lab studies that have been ordered have been reviewed, and results considered in the medical decision making process. - Radiology CXR Radiology Interpretation Completed By: Radiologist Summary of Radiographic Findings: IMPRESSION: CHEST X-RAY FINDINGS ARE CONSISTENT WITH CHRONIC OBSTRUCTIVE PULMONARY DISEASE SIMILAR IN APPEARANCE TO THE PREVIOUS CHEST X-RAY. The ED physician reviewed this radiology report. - EKG 13:35 Cardiac Rate: NL - 74 bpm EKG Rhythm: Sinus Rhythm Summary of EKG Findings: Non-specific inferior changes Chest Pain Course/Dx - Course Course Of Treatment: Mr. Yots presented to the emergency department with a fairly vague chest pain story. He has had some fullness/pressure in his anterior chest for 3 or 4 days. He says 4 days in direct answer to the question "when was the last time he was symptom-free". At one this morning he had an actual pain in his anterior chest that radiated down his left arm was not accompanied by any other symptoms. He took nitroglycerin and it went away. He does not have that pain now. He was nontoxic in appearance and his vital signs are stable here. He was placed on a monitor while labs were obtained and chest x-ray and EKG. We do not have an old EKG that I can find however there is no acute change on this one. His chest x-ray shows some COPD that is unchanged. His troponin is 0 and his labs are otherwise within normal limits. I do not think this represents anything dangerous. It may be his COPD. His d- dimer is 240 with a normal up to 230 and I do not think this is significant. I recommended close follow-up with Dr. Tam. - Diagnoses Provider Diagnoses: Chest pain Discharge - Sign-Out/Discharge Documenting (check all that apply): Patient Departure - DC - Discharge Plan Condition: Stable Disposition: HOME Patient Education Materials: Chest Pain (ED) Referrals: Thuan Garcia MD [Primary Care Provider] - Additional Instructions: Follow up with your PCP on Tuesday06/12/2018 Return to ED for any new or worsening symptoms - Billing Disposition and Condition Condition: STABLE Disposition: Home - Attestation Statements Document Initiated by Scribe: Yes Documenting Scribe: Cielo Irizarry Provider For Whom Scribe is Documenting (Include Credential): MD Shameka Martinibsatya Attestation: I, Cielo Irizarry , scribed for Dr. Geovani Bagley MD on 06/09/18 at 1754. Scribe Documentation Reviewed: Yes Provider Attestation: The documentation as recorded by the scribe, Cielo Irizarry accurately reflects the service I personally performed and the decisions made by me, Dr. Geovani Bagley MD Status of Scribe Document: Viewed
[2018-06-09 14:12] LABS: ABS Basophils 0.1 10^3/ul (0-0.2); ABS Eosinophils 0.1 10^3/ul (0-0.6); ABS Lymphocytes 1.3 10^3/ul (1.0-4.8); ABS Monocytes 0.7 10^3/ul (0-0.8); ABS Neutrophils 4.2 10^3/ul (1.5-7.7); ABS Nucleated RBC 0 10^3/ul; Eosinophil % 1.5 %; Hematocrit 41 % (42-52); Hemoglobin 13.9 g/dl (14.0-18.0); Lymphocyte % 20.1 %; Mean Corpuscular HGB Conc 34 g/dl (31-36); Mean Corpuscular Hemoglobin 29 pg (27-31); Mean Corpuscular Volume 86 fL (80-94); Mean Platelet Volume 7.2 fL (7.4-10.4); Nucleated Red Blood Cells % 0; Platelet Count 306 10^3/ul (150-450); Red Blood Count 4.83 10^6/ul (4.00-5.40); Red Cell Distribution Width 16 % (10.5-15); White Blood Count 6.2 10^3/ul (3.5-10.8)
[2018-06-09 14:23] LABS: INR 0.93 (0.77-1.02)
[2018-06-09 14:32] LABS: EGFR Non-African American 75.7 (>60)
[2018-06-09 16:36] VITALS: BP 127/81
== END 2018-06-09 16:34 | disposition home or self-care (01) ==
LOC: ED 13:24
DX: R07.89 Other chest pain (principal); E03.9 Hypothyroidism, unspecified; I25.119 Atherosclerotic heart disease of native coronary artery with unspecified angina pectoris; I10 Essential (primary) hypertension; Z95.5 Presence of coronary angioplasty implant and graft; Z79.82 Long term (current) use of aspirin; Z88.8 Allergy status to other drugs, medicaments and biological substances; Z82.49 Family history of ischemic heart disease and other diseases of the circulatory system; Z82.3 Family history of stroke; Z87.891 Personal history of nicotine dependence
CPT/HCPCS: 36415; 71046; 80053; 82550; 82553; 83605; 84443; 84484; 85025; 85379; 85610; 93005; 99283

== ENCOUNTER 2020-06-16 03:03 | Inpatient (IN) ==
[2020-06-16 03:54] LABS: ALT 14 U/L (7-52); AST 16 U/L (13-39); Albumin 4.6 g/dL (3.2-5.2); Albumin/Globulin Ratio 1.6 (1-3); Alkaline Phosphatase 55 U/L (34-104); Anion Gap 10 mmol/L (2-11); BUN/Creatinine Ratio 22.8 (8-20); Blood Urea Nitrogen 28 mg/dL (6-24); CO2 Carbon Dioxide 22 mmol/L (22-32); Calcium 9.5 mg/dL (8.6-10.3); Chloride 98 mmol/L (101-111); EGFR African American 69.2 (>60); EGFR Non-African American 57.2 (>60); Globulin 2.8 g/dL (2-4); Glucose 137 mg/dL (70-100); Potassium 3.7 mmol/L (3.5-5.0); Sodium 130 mmol/L (135-145); Total Protein 7.4 g/dL (6.4-8.9)
[2020-06-16 03:56] LABS: Troponin I 0.01 ng/mL (<0.03)
[2020-06-16 05:26] LABS: % Iron Saturation 25 % (15-55); Iron 96 ug/dL (50-212); Total Iron Binding Capacity 384 mcg/dL (250-450); Transferrin 274 mg/dL (203-362); Unsaturated Iron Binding < 369 ug/dL
[2020-06-16 05:38] LABS: TSH Ultra Thyroid Stim Horm 0.54 mcIU/mL (0.34-5.60)
[2020-06-16 05:45] LABS: Ferritin 76.8 ng/mL (24-336)
[2020-06-16 05:49] LABS: Folate 9.61 ng/mL (>3.99)
[2020-06-16] MEDS ORDERED: Pantoprazole VIAL 40 MG VIAL IV SCH (06:00)
[2020-06-16] MEDS: Isosorbide Mononit ER 60mg TAB PO SCH (09:28)
[2020-06-16 09:55] LABS: Hematocrit 38 % (42-52)
[2020-06-16 10:08] LABS: Activated Partial Thrombo Time 27.7 seconds (26.0-38.0); INR 0.97 (0.82-1.09)
[2020-06-16 10:30] LABS: Troponin I 0.27 ng/mL (<0.03)
[2020-06-16] MEDS ORDERED: Heparin DRIP 25,000 UNITS BAG 25,000 UNITS/500 ML BAG IV SCH (12:00)
[2020-06-16] MEDS ORDERED: Heparin 5000 UNITS/ML 1 mL VIAL IV SCH (12:00)
[2020-06-16 18:03] LABS: Hematocrit 36 % (42-52); Hemoglobin 12.3 g/dL (14.0-18.0); Mean Corpuscular HGB Conc 34 g/dL (31-36); Mean Corpuscular Hemoglobin 30 pg (27-31); Mean Corpuscular Volume 88 fL (80-94); Mean Platelet Volume 6.5 fL (7.4-10.4); Platelet Count 353 10^3/uL (150-450); Red Blood Count 4.11 10^6 /uL (4.18-5.48); Red Cell Distribution Width 14 % (10-15); White Blood Count 7.5 10^3/uL (3.5-10.8)
[2020-06-16 20:30] LABS: Troponin I 0.53 ng/mL (<0.03)
[2020-06-16] MEDS: Rosuvastatin 20 mg TAB (NF) PO SCH (22:41)
[2020-06-16 23:06] LABS: Cholesterol 136 mg/dL; HDL Cholesterol 46.7 mg/dL; LDL Cholesterol 68 mg/dL; Triglycerides 108 mg/dL
[2020-06-16 23:12] LABS: Troponin I 0.46 ng/mL (<0.03)
[2020-06-17] MEDS: NS 0.9% 1000 ml BAG 1,000 ML IV SCH ×2 (00:19→12:49)
[2020-06-17 03:31] LABS: ABS Eosinophils 0.1 10^3/ul (0-0.6); ABS Lymphocytes 1.6 10^3/ul (1.0-4.8); ABS Monocytes 0.8 10^3/ul (0-0.8); ABS Neutrophils 4.4 10^3/ul (1.5-7.7); Eosinophil % 1.1 %; Hematocrit 36 % (42-52); Hemoglobin 12.1 g/dL (14.0-18.0); Lymphocyte % 23.6 %; Mean Corpuscular HGB Conc 33 g/dL (31-36); Mean Corpuscular Hemoglobin 30 pg (27-31); Mean Corpuscular Volume 89 fL (80-94); Mean Platelet Volume 6.7 fL (7.4-10.4); Platelet Count 342 10^3/uL (150-450); Red Blood Count 4.08 10^6 /uL (4.18-5.48); Red Cell Distribution Width 14 % (10-15); White Blood Count 6.9 10^3/uL (3.5-10.8)
[2020-06-17 03:46] LABS: Calcium 9.2 mg/dL (8.6-10.3)
[2020-06-17 03:52] LABS: BUN/Creatinine Ratio 21.8 (8-20); EGFR African American 78.7 (>60); EGFR Non-African American 65.1 (>60)
[2020-06-17] MEDS: Isosorbide Mononit ER 60mg TAB PO SCH (07:08)
[2020-06-17] MEDS ORDERED: fentaNYL 100 mcg/2 ml 50 MCG/ML VIAL ONE (07:37)
[2020-06-17] MEDS ORDERED: Heparin 1,000 UNIT/ML 10 ml (10,000 UNITS) CATHLAB/DIALYSIS ONE (07:37)
[2020-06-17] MEDS ORDERED: Heparin 2 UNITS/ML 1000 mls 3,000 ML IV ONE (07:37)
[2020-06-17] MEDS ORDERED: Lidocaine 1% VIAL 10 MG/ML VIAL ONE (07:37)
[2020-06-17] MEDS ORDERED: Midazolam 5 mg/5 ml VIAL 1 mg/ml 5 ml VIAL (5 mg) ONE (07:37)
[2020-06-17] MEDS ORDERED: VERAPAMIL 2.5 MG/ML 2 ML VIAL ** 5 mg/2 ml ONE ×2 (07:37→08:03)
[2020-06-17] MEDS ORDERED: nitroGLYCERIN DRIP 25,000 MCG/250 ML BTL ONE ×2 (07:37→11:02)
[2020-06-17] MEDS ORDERED: Iohexol 350 (CONTRAST) 200 ML MDV IV ONE ×3 (07:38→11:12)
[2020-06-17] MEDS ORDERED: diPHENhydraMINE 25 mg TAB PO PRN (08:00)
[2020-06-17] MEDS ORDERED: Phenylephrine IV 10 MG/ML 1 ml VIAL ONE (08:24)
[2020-06-17] MEDS ORDERED: Bivalirudin 250 MG VIAL ONE ×2 (08:42→10:30)
[2020-06-17] MEDS ORDERED: Nitro 2% OINT (Nitroglycerin) 1 INCH/PAK ONE (10:46)
[2020-06-17] MEDS ORDERED: Heparin 2 UNITS/ML 1000 mls 2,000 ML IV ONE (10:55)
[2020-06-17] MEDS ORDERED: Heparin 2 UNITS/ML 1000 mls 1,000 ML IV ONE (11:19)
[2020-06-17] MEDS: Rosuvastatin 20 mg TAB (NF) PO SCH (21:04)
[2020-06-18 05:05] LABS: ABS Lymphocytes 0.7 10^3/ul (1.0-4.8); ABS Monocytes 0.8 10^3/ul (0-0.8); ABS Neutrophils 7.8 10^3/ul (1.5-7.7); Eosinophil % 0.1 %; Hematocrit 31 % (42-52); Hemoglobin 10.5 g/dL (14.0-18.0); Lymphocyte % 7.5 %; Mean Corpuscular HGB Conc 34 g/dL (31-36); Mean Corpuscular Hemoglobin 30 pg (27-31); Mean Corpuscular Volume 89 fL (80-94); Mean Platelet Volume 6.6 fL (7.4-10.4); Platelet Count 315 10^3/uL (150-450); Red Blood Count 3.48 10^6 /uL (4.18-5.48); Red Cell Distribution Width 14 % (10-15); White Blood Count 9.4 10^3/uL (3.5-10.8)
[2020-06-18 05:23] LABS: BUN/Creatinine Ratio 21.5 (8-20); Calcium 9.5 mg/dL (8.6-10.3); EGFR African American 70.5 (>60); EGFR Non-African American 58.3 (>60); Potassium 3.8 mmol/L (3.5-5.0)
[2020-06-18] MEDS: Isosorbide Mononit ER 60mg TAB PO SCH (08:14)
[2020-06-18 09:30] VITALS: BP 125/62
== END 2020-06-18 13:45 | disposition home or self-care (01) | DRG 247 ==
LOC: MEDTELE 03:03 → ED 03:03 → MEDTELE 06:20 → OBSVTOIN 07:16 → ICU 06-17 12:23
PROVIDERS: ADMIT Student in an Organized Health Care Education/Training Program; ATTEND Internal Medicine Critical Care Medicine

== ENCOUNTER 2023-08-11 16:56 | Inpatient (IN) ==
[2023-08-11 20:34] LABS: ABS Lymphocytes 0.4 10^3/uL (1.0-4.8); ABS Monocytes 0.8 10^3/uL (0.0-1.1); ABS Neutrophils 4.4 10^3/uL (1.5-7.6); Hematocrit 32.1 % (38-53); Hemoglobin 10.9 g/dL (13.2-16.3); Mean Corpuscular Hemoglobin 29.9 pg (27-33); Mean Corpuscular Volume 87.9 fL (80-97); Mean Platelet Volume 6.5 fL (7.5-11.2); Platelet Count 292 10^3/uL (150-450); Red Blood Count 3.65 10^6/uL (4.06-5.63); Red Cell Distribution Width 14.4 % (12-17); White Blood Count 5.5 10^3/uL (3.6-10.2)
[2023-08-11 20:53] LABS: Albumin 4.5 g/dL (3.2-5.2); Albumin/Globulin Ratio 1.5 (1-3); Calcium 9.6 mg/dL (8.6-10.3); Creatinine, Serum 3.09 mg/dL (0.67-1.17); Potassium 4.7 mmol/L (3.5-5.0); Total Bilirubin 0.4 mg/dL (0.2-1.0); Total Protein 7.5 g/dL (6.4-8.9); eGFR CKD-EPI 19.8 (>60)
[2023-08-11 21:20] LABS: TSH Ultra Thyroid Stim Horm 0.21 mcIU/mL (0.34-5.60)
[2023-08-11] MEDS: Lactated Ringers 1000 ml BAG 1,000 ML IV ONE (21:37)
[2023-08-11 22:05] LABS: Urine Appearance Turbid; Urine Bilirubin Negative (Negative); Urine Blood Negative (Negative); Urine Color Yellow; Urine Glucose Negative (Negative); Urine Ketones Negative (Negative); Urine Nitrite Negative (Negative); Urine Protein 1+ (>=30 mg/dL) (Negative); Urine Specific Gravity 1.033 (1.002-1.030); Urine Urobilinogen Negative (Negative)
[2023-08-11 22:10] LABS: Urine Bacteria Absent /HPF (Absent); Urine Red Blood Cell 1+(3-5/hpf) /HPF (0-Trace); Urine Squamous Epithelial Cell Present /HPF (Absent); Urine White Blood Cell Trace(0-5/hpf) /HPF (0-Trace)
[2023-08-11 22:40] LABS: C Reactive Protein 25.15 mg/L (<8.01)
[2023-08-11] MEDS: Lactated Ringers 1000 ml BAG 1,000 ML IV SCH (23:29)
[2023-08-12] MEDS ORDERED: Triamcinolone 0.025% OINT 15 GM TUBE TOPICAL PRN (01:55)
[2023-08-12 03:23] LABS: Hematocrit 28.7 % (38-53); Hemoglobin 9.9 g/dL (13.2-16.3); Mean Corpuscular Hemoglobin 30.4 pg (27-33); Mean Corpuscular Hgb Conc 34.4 g/dL (31-36); Mean Corpuscular Volume 88.5 fL (80-97); Red Blood Count 3.25 10^6/uL (4.06-5.63); Red Cell Distribution Width 14.5 % (12-17); White Blood Count 5.2 10^3/uL (3.6-10.2)
[2023-08-12 03:24] LABS: ABS Monocytes 0.7 10^3/uL (0.0-1.1); ABS Neutrophils 3.5 10^3/uL (1.5-7.6); Eosinophil % 0.1 %; Lymphocyte % 20.1 %; Nucleated Red Blood Cells % 0.1 %/100WBC (0.0-0.8)
[2023-08-12 03:32] LABS: Activated Partial Thrombo Time 19.3 seconds (26.0-38.0); INR 1.05 (0.83-1.13)
[2023-08-12 03:35] LABS: Calcium 8.7 mg/dL (8.6-10.3); Creatinine, Serum 2.61 mg/dL (0.67-1.17); eGFR CKD-EPI 24.2 (>60)
[2023-08-12 03:51] LABS: Mean Platelet Volume 6.9 fL (7.5-11.2); Platelet Count 243 10^3/uL (150-450)
[2023-08-12] MEDS: Lactated Ringers 1000 ml BAG 1,000 ML IV SCH (05:05)
[2023-08-12 05:35] LABS: ABS Lymphocytes 0.8 10^3/uL (1.0-4.8); ABS Monocytes 0.7 10^3/uL (0.0-1.1); ABS Neutrophils 3.5 10^3/uL (1.5-7.6); Eosinophil % 0.1 %; Hemoglobin 9.3 g/dL (13.2-16.3); Mean Corpuscular Hemoglobin 30.2 pg (27-33); Mean Corpuscular Hgb Conc 34.3 g/dL (31-36); Mean Platelet Volume 6.9 fL (7.5-11.2); Platelet Count 232 10^3/uL (150-450); Red Blood Count 3.07 10^6/uL (4.06-5.63); Red Cell Distribution Width 14.3 % (12-17)
[2023-08-12 05:57] LABS: Calcium 8.4 mg/dL (8.6-10.3); Creatinine, Serum 2.33 mg/dL (0.67-1.17); Magnesium 1.8 mg/dL (1.9-2.7); Potassium 3.7 mmol/L (3.5-5.0); eGFR CKD-EPI 27.7 (>60)
[2023-08-12] MEDS: Magnesium Sulfate IV 1GM/100ML 1 GM/100 ML BAG IV ONE (08:42)
[2023-08-12] MEDS: Heparin 5000 UNITS/ML 1 mL VIAL SUBCUT SCH (08:44)
[2023-08-12] MEDS: Lidocaine PATCH 4% TOPICAL SCH (08:44)
[2023-08-12] MEDS: OFLOXACIN 0.3% BOTH EYES SCH (08:44)
[2023-08-12] MEDS ORDERED: Lidocaine PATCH 5% PATCH TRANSDERM SCH (09:00)
[2023-08-12 09:55] LABS: Urine Creatinine Concentration 77.39 mg/dL (20.00-370.00)
[2023-08-12 10:11] LABS: Urine Osmo 466 mOsm/kg (150-1150)
[2023-08-12] MEDS: KCL 20 MEQ/100 ML IVPREMIX 20 MEQ/100 ML BAG IV ONE (10:32)
[2023-08-13 09:02] LABS: ABS Lymphocytes 0.8 10^3/uL (1.0-4.8); ABS Monocytes 0.4 10^3/uL (0.0-1.1); ABS Neutrophils 1.9 10^3/uL (1.5-7.6); ABS Nucleated RBC 0.01 10^3/ul; Eosinophil % 0.8 %; Hematocrit 28.5 % (38-53); Hemoglobin 9.9 g/dL (13.2-16.3); Lymphocyte % 25.5 %; Mean Corpuscular Hemoglobin 30.5 pg (27-33); Mean Corpuscular Hgb Conc 34.8 g/dL (31-36); Mean Corpuscular Volume 87.7 fL (80-97); Mean Platelet Volume 6.7 fL (7.5-11.2); Nucleated Red Blood Cells % 0.2 %/100WBC (0.0-0.8); Platelet Count 246 10^3/uL (150-450); Red Blood Count 3.25 10^6/uL (4.06-5.63); Red Cell Distribution Width 14.6 % (12-17); White Blood Count 3.2 10^3/uL (3.6-10.2)
[2023-08-13 09:19] LABS: Creatinine, Serum 1.35 mg/dL (0.67-1.17); Magnesium 1.8 mg/dL (1.9-2.7); Potassium 4.5 mmol/L (3.5-5.0); eGFR CKD-EPI 53.4 (>60)
[2023-08-13] MEDS: Isosorbide Mononit ER 30mg TAB PO SCH (10:44)
[2023-08-13] MEDS: Magnesium Sulfate IV 1GM/100ML 1 GM/100 ML BAG IV ONE (11:50)
[2023-08-14 05:00] LABS: ABS Eosinophils 0.1 10^3/uL (0.0-0.5); ABS Lymphocytes 1.1 10^3/uL (1.0-4.8); ABS Monocytes 0.4 10^3/uL (0.0-1.1); ABS Neutrophils 1.9 10^3/uL (1.5-7.6); Eosinophil % 2.3 %; Hematocrit 28.8 % (38-53); Hemoglobin 9.8 g/dL (13.2-16.3); Lymphocyte % 30.7 %; Mean Corpuscular Hemoglobin 29.7 pg (27-33); Mean Corpuscular Hgb Conc 33.9 g/dL (31-36); Mean Corpuscular Volume 87.7 fL (80-97); Platelet Count 246 10^3/uL (150-450); Red Blood Count 3.28 10^6/uL (4.06-5.63); Red Cell Distribution Width 14.3 % (12-17); White Blood Count 3.5 10^3/uL (3.6-10.2)
[2023-08-14 05:19] LABS: Calcium 8.8 mg/dL (8.6-10.3); Creatinine, Serum 1.27 mg/dL (0.67-1.17); Potassium 4.2 mmol/L (3.5-5.0); eGFR CKD-EPI 57.5 (>60)
[2023-08-14 10:12] VITALS: BP 123/73
== END 2023-08-14 11:26 | disposition home or self-care (01) | DRG 71 ==
LOC: ED 16:56 → SUATTDRO 22:34 → EDHOLD 22:34 → MEDTELE 08-12 01:53
PROVIDERS: ADMIT Internal Medicine; ATTEND Student in an Organized Health Care Education/Training Program

== ENCOUNTER 2023-11-10 17:24 | Inpatient (IN) ==
[2023-11-10 18:52] LABS: ABS Eosinophils 0.1 10^3/uL (0.0-0.5); ABS Monocytes 0.6 10^3/uL (0.0-1.1); ABS Neutrophils 3.2 10^3/uL (1.5-7.6); ABS Nucleated RBC 0.01 10^3/ul; Eosinophil % 1.2 %; Hematocrit 30.8 % (38-53); Hemoglobin 10.5 g/dL (13.2-16.3); Mean Corpuscular Hemoglobin 29.5 pg (27-33); Mean Corpuscular Hgb Conc 34.1 g/dL (31-36); Mean Corpuscular Volume 86.7 fL (80-97); Mean Platelet Volume 6.3 fL (7.5-11.2); Nucleated Red Blood Cells % 0.1 %/100WBC (0.0-0.8); Platelet Count 391 10^3/uL (150-450); Red Blood Count 3.55 10^6/uL (4.06-5.63); Red Cell Distribution Width 14.4 % (12-17); White Blood Count 4.9 10^3/uL (3.6-10.2)
[2023-11-10 18:54] LABS: Urine Appearance Clear; Urine Bilirubin Negative (Negative); Urine Blood Negative (Negative); Urine Color Colorless; Urine Glucose Negative (Negative); Urine Ketones Negative (Negative); Urine Nitrite Negative (Negative); Urine Protein Negative (Negative); Urine Urobilinogen Negative (Negative)
[2023-11-10 19:23] LABS: Albumin 4.7 g/dL (3.2-5.2); Albumin/Globulin Ratio 1.7 (1-3); Calcium 9.9 mg/dL (8.6-10.3); Creatinine, Serum 1.3 mg/dL (0.67-1.17); Globulin 2.7 g/dL (2-4); Magnesium 1.8 mg/dL (1.9-2.7); Potassium 4.1 mmol/L (3.5-5.0); Total Bilirubin 0.6 mg/dL (0.2-1.0); Total Protein 7.4 g/dL (6.4-8.9); eGFR CKD-EPI 55.9 (>60)
[2023-11-10 19:33] LABS: TSH Ultra Thyroid Stim Horm 4.66 mcIU/mL (0.34-5.60)
[2023-11-10] MEDS: NS 0.9% 1000 ml BAG 1,000 ML IV SCH ×2 (20:22→23:03)
[2023-11-10 23:57] LABS: Anion Gap 9 mmol/L (2-16); Blood Urea Nitrogen 17 mg/dL (6-24); CO2 Carbon Dioxide 23 mmol/L (22-32); Calcium 9.7 mg/dL (8.6-10.3); Chloride 93 mmol/L (101-111); Creatinine, Serum 1.17 mg/dL (0.67-1.17); Glucose 96 mg/dL (70-100); Potassium 3.7 mmol/L (3.5-5.0); Sodium 125 mmol/L (135-145); eGFR CKD-EPI 63.4 (>60)
[2023-11-11 04:25] LABS: Iron 40 ug/dL (50-212)
[2023-11-11 04:44] LABS: % Iron Saturation 12 % (15-55); .Transferrin 239 mg/dL (203-362); Total Iron Binding Capacity 335 mcg/dL (250-450); Unsaturated Iron Binding 295 ug/dL
[2023-11-11 04:51] LABS: Folate > 20.00 ng/mL (5.90-24.80)
[2023-11-11 04:52] LABS: Vitamin B12 323 pg/mL (180-914)
[2023-11-11] MEDS: Potassium Chlor 20 meq TAB.ER PO ONE (05:43)
[2023-11-11 06:22] LABS: Osmolality Serum 266 mOsm/kg (275-295)
[2023-11-11 06:24] LABS: Ferritin 119.2 ng/mL (24-336)
[2023-11-11] MEDS: Lidocaine PATCH 5% PATCH TRANSDERM SCH (08:45)
[2023-11-11] MEDS: Polyethylene Glycol 3350 17 GM PACKET PO SCH (08:50)
[2023-11-11] MEDS: Isosorbide Mononit ER 60mg TAB PO SCH (08:51)
[2023-11-11] MEDS: Multivitamins/Minerals TAB PO SCH (08:51)
[2023-11-11] MEDS: Magnesium Hydroxide LIQ 30 ML UDC PO SCH (08:52)
[2023-11-11] MEDS: NF: Multivitamins/Mins AREDS2 (NF) CAP PO SCH (08:52)
[2023-11-11] MEDS: Iron Sucrose 200 MG in NS 0.9% 100 ml BAG 100 ML IVPB SCH (09:04)
[2023-11-11 10:04] LABS: Urine Osmo 294 mOsm/kg (150-1150)
[2023-11-11 13:04] LABS: ABS Eosinophils 0.1 10^3/uL (0.0-0.5); ABS Monocytes 0.6 10^3/uL (0.0-1.1); ABS Neutrophils 3.3 10^3/uL (1.5-7.6); Eosinophil % 1.5 %; Hematocrit 31.6 % (38-53); Mean Corpuscular Hemoglobin 29.9 pg (27-33); Mean Corpuscular Hgb Conc 34.7 g/dL (31-36); Mean Corpuscular Volume 86.1 fL (80-97); Mean Platelet Volume 6.4 fL (7.5-11.2); Nucleated Red Blood Cells % 0.1 %/100WBC (0.0-0.8); Platelet Count 413 10^3/uL (150-450); Red Blood Count 3.67 10^6/uL (4.06-5.63); Red Cell Distribution Width 14.7 % (12-17)
[2023-11-11 13:20] LABS: Calcium 9.1 mg/dL (8.6-10.3); Creatinine, Serum 1.03 mg/dL (0.67-1.17); Potassium 4.2 mmol/L (3.5-5.0); eGFR CKD-EPI 73.9 (>60)
[2023-11-11 13:29] LABS: Urine Potassium Concentration 8.2 mmol/L
[2023-11-11] MEDS: Magnesium Hydroxide LIQ 30 ML UDC PO PRN (15:41)
[2023-11-11] MEDS: Senna TAB 8.6 mg TAB PO SCH (22:00)
[2023-11-12 06:35] LABS: ABS Eosinophils 0.1 10^3/uL (0.0-0.5); ABS Lymphocytes 0.8 10^3/uL (1.0-4.8); ABS Monocytes 0.6 10^3/uL (0.0-1.1); ABS Neutrophils 3.4 10^3/uL (1.5-7.6); Eosinophil % 1.5 %; Hematocrit 29.5 % (38-53); Hemoglobin 10.2 g/dL (13.2-16.3); Mean Corpuscular Hemoglobin 29.7 pg (27-33); Mean Corpuscular Hgb Conc 34.7 g/dL (31-36); Mean Corpuscular Volume 85.6 fL (80-97); Mean Platelet Volume 6.6 fL (7.5-11.2); Nucleated Red Blood Cells % 0.1 %/100WBC (0.0-0.8); Platelet Count 380 10^3/uL (150-450); Red Blood Count 3.44 10^6/uL (4.06-5.63); Red Cell Distribution Width 14.8 % (12-17); White Blood Count 4.9 10^3/uL (3.6-10.2)
[2023-11-12 06:51] LABS: Calcium 9.5 mg/dL (8.6-10.3); Creatinine, Serum 1.02 mg/dL (0.67-1.17); Potassium 4.7 mmol/L (3.5-5.0); eGFR CKD-EPI 74.8 (>60)
[2023-11-13 05:50] LABS: ABS Lymphocytes 0.8 10^3/uL (1.0-4.8); ABS Monocytes 0.7 10^3/uL (0.0-1.1); ABS Neutrophils 4.8 10^3/uL (1.5-7.6); ABS Nucleated RBC 0.01 10^3/ul; Eosinophil % 0.6 %; Hematocrit 33.4 % (38-53); Hemoglobin 11.4 g/dL (13.2-16.3); Mean Corpuscular Hemoglobin 29.5 pg (27-33); Mean Corpuscular Hgb Conc 34.3 g/dL (31-36); Mean Platelet Volume 6.4 fL (7.5-11.2); Nucleated Red Blood Cells % 0.1 %/100WBC (0.0-0.8); Platelet Count 426 10^3/uL (150-450); Red Blood Count 3.88 10^6/uL (4.06-5.63); Red Cell Distribution Width 14.5 % (12-17); White Blood Count 6.3 10^3/uL (3.6-10.2)
[2023-11-13 06:07] LABS: Calcium 10.2 mg/dL (8.6-10.3); Creatinine, Serum 1.14 mg/dL (0.67-1.17); Magnesium 2.1 mg/dL (1.9-2.7); Potassium 4.5 mmol/L (3.5-5.0); eGFR CKD-EPI 65.4 (>60)
[2023-11-13] MEDS: Ure-Na 15 GM POWD.PACK PO SCH (10:17)
[2023-11-14 07:07] LABS: ABS Eosinophils 0.1 10^3/uL (0.0-0.5); ABS Lymphocytes 1.2 10^3/uL (1.0-4.8); ABS Monocytes 0.7 10^3/uL (0.0-1.1); ABS Neutrophils 3.7 10^3/uL (1.5-7.6); Eosinophil % 1.8 %; Hematocrit 30.7 % (38-53); Hemoglobin 10.7 g/dL (13.2-16.3); Lymphocyte % 20.7 %; Mean Corpuscular Hemoglobin 29.9 pg (27-33); Mean Corpuscular Hgb Conc 34.8 g/dL (31-36); Mean Corpuscular Volume 85.9 fL (80-97); Mean Platelet Volume 6.4 fL (7.5-11.2); Nucleated Red Blood Cells % 0.1 %/100WBC (0.0-0.8); Platelet Count 423 10^3/uL (150-450); Red Blood Count 3.58 10^6/uL (4.06-5.63); Red Cell Distribution Width 14.6 % (12-17); White Blood Count 5.7 10^3/uL (3.6-10.2)
[2023-11-14 09:44] LABS: Calcium 9.7 mg/dL (8.6-10.3); Creatinine, Serum 1.13 mg/dL (0.67-1.17); Magnesium 2.1 mg/dL (1.9-2.7); Potassium 4.6 mmol/L (3.5-5.0); eGFR CKD-EPI 66.1 (>60)
[2023-11-14 10:28] LABS: Osmolality Serum 273 mOsm/kg (275-295)
[2023-11-14 13:10] LABS: Urine Potassium Concentration 56.8 mmol/L
[2023-11-14 14:09] LABS: Urine Osmo 626 mOsm/kg (150-1150)
[2023-11-14] MEDS: Gadoteridol (CONTRAST) 279.3 MG/ML 10 ML IV ONE (19:39)
[2023-11-15 07:03] LABS: ABS Eosinophils 0.1 10^3/uL (0.0-0.5); ABS Lymphocytes 1.1 10^3/uL (1.0-4.8); ABS Monocytes 0.6 10^3/uL (0.0-1.1); ABS Neutrophils 3.3 10^3/uL (1.5-7.6); Eosinophil % 1.7 %; Hemoglobin 11.2 g/dL (13.2-16.3); Lymphocyte % 20.8 %; Mean Corpuscular Hemoglobin 30.1 pg (27-33); Mean Corpuscular Hgb Conc 34.9 g/dL (31-36); Mean Corpuscular Volume 86.1 fL (80-97); Mean Platelet Volume 6.4 fL (7.5-11.2); Nucleated Red Blood Cells % 0.1 %/100WBC (0.0-0.8); Platelet Count 448 10^3/uL (150-450); Red Blood Count 3.71 10^6/uL (4.06-5.63); White Blood Count 5.1 10^3/uL (3.6-10.2)
[2023-11-15 07:42] LABS: Osmolality Serum 280 mOsm/kg (275-295)
[2023-11-15 07:44] LABS: Calcium 10.3 mg/dL (8.6-10.3); Creatinine, Serum 1.26 mg/dL (0.67-1.17); Magnesium 2.2 mg/dL (1.9-2.7); Potassium 4.5 mmol/L (3.5-5.0)
[2023-11-16 06:57] LABS: ABS Eosinophils 0.1 10^3/uL (0.0-0.5); ABS Monocytes 0.7 10^3/uL (0.0-1.1); ABS Neutrophils 4.4 10^3/uL (1.5-7.6); Eosinophil % 1.1 %; Hematocrit 33.4 % (38-53); Hemoglobin 11.4 g/dL (13.2-16.3); Lymphocyte % 16.5 %; Mean Corpuscular Hemoglobin 29.6 pg (27-33); Mean Corpuscular Hgb Conc 34.2 g/dL (31-36); Mean Corpuscular Volume 86.5 fL (80-97); Mean Platelet Volume 6.3 fL (7.5-11.2); Platelet Count 492 10^3/uL (150-450); Red Blood Count 3.87 10^6/uL (4.06-5.63); Red Cell Distribution Width 14.7 % (12-17); White Blood Count 6.2 10^3/uL (3.6-10.2)
[2023-11-16 07:04] LABS: Calcium 10.3 mg/dL (8.6-10.3); Creatinine, Serum 1.31 mg/dL (0.67-1.17); Potassium 4.5 mmol/L (3.5-5.0); eGFR CKD-EPI 55.4 (>60)
[2023-11-16 13:24] LABS: Rapid COVID-19 Molecular Undetected (Undetected)
[2023-11-16 21:44] LABS: Rapid COVID-19 Molecular Undetected (Undetected)
[2023-11-17 05:40] VITALS: BP 103/64
== END 2023-11-17 08:35 | DRG 71 ==
LOC: ED 17:24 → EDHOLD 17:24 → SUATTDRO 11-11 00:29 → MED 11-11 03:41 → SUATTDRO 11-13 09:59
PROVIDERS: ADMIT Internal Medicine; ATTEND Student in an Organized Health Care Education/Training Program